=== PATIENT | male | born 1995 | race Two or more races ===

== ENCOUNTER 2018-08-07 13:33 | Emergency (ER) | payer SELFPAY ==
[~2018-08-07] VITALS: Ht 177.8 cm; Wt 99.8 kg
[2018-08-07 13:33] VITALS: BP 142/89
--- NOTE | 2018-08-07 13:39 | NUR ---
DR REICH WITH PATIENT FOR EVAL, REFUSED TO BE EXAMINED, AMBULATORY,STEADY GAIT,A/O X 3, WALKED OUT OF ER.
== END 2018-08-07 13:48 | disposition left against medical advice (07) ==
LOC: ER 13:35
DX: Z53.21 Procedure and treatment not carried out due to patient leaving prior to being seen by health care provider (principal)

== ENCOUNTER → 2018-08-15 | Emergency (ER) | payer OTHER ==
[~2018-08-15] VITALS: Ht 182.9 cm; Wt 83.9 kg
[2018-08-15 10:29] VITALS: BP 154/92
== END | disposition home or self-care (01) ==
LOC: ER 10:04
DX: S62.317A Displaced fracture of base of fifth metacarpal bone, left hand, initial encounter for closed fracture (principal); M25.562 Pain in left knee; X58.XXXA Exposure to other specified factors, initial encounter; Y93.89 Activity, other specified; Y92.89 Other specified places as the place of occurrence of the external cause; Y99.8 Other external cause status
CPT/HCPCS: 73130-TC; 73564-TC